=== PATIENT | female | born 1965 | race Caucasian/White ===

== ENCOUNTER 2017-06-21 17:41 | Emergency (ER) | payer OTHER ==
[~2017-06-21] VITALS: Ht 165.1 cm; Wt 68.2 kg
[2017-06-21] MEDS ORDERED: IBUP-2071 PO (17:47)
[2017-06-21] MEDS ORDERED: DOXY50 PO (17:47)
[2017-06-21] MEDS ORDERED: TRAM50TA4 PO (17:47)
[2017-06-21] MEDS ORDERED: ONDA4 PO (17:47)
[2017-06-21] MEDS ORDERED: HYDROCODONE/ACETAMINOPHEN 5-325 MG TABLET PO ONE (18:45)
[2017-06-21] MEDS ORDERED: LIDOCAINE HCL 1% 10 ML VIAL INJ ONE (18:45)
[2017-06-21] MEDS ORDERED: POVIDONE-IODINE 10% 15 ML SOLUTION UD TP ONE (18:45)
[2017-06-21 19:01] VITALS: BP 139/79
[2017-06-21] MEDS ORDERED: SULFAMETHOX/TRIMETH DS 800-160 MG/TABLET PO ONE (19:15)
[2017-06-21] MEDS ORDERED: CEPHALEXIN MONOHYDRATE 500 MG CAPSULE PO ONE (19:15)
== END 2017-06-21 19:28 | disposition home or self-care (01) ==
LOC: EMS 17:43
DX: L02.416 Cutaneous abscess of left lower limb (principal); L03.116 Cellulitis of left lower limb; F17.210 Nicotine dependence, cigarettes, uncomplicated
CPT/HCPCS: 10060; 99284; 99406; J3490